=== PATIENT | female | born 1965 | race Caucasian/White ===

== ENCOUNTER 2016-06-06 21:34 | Emergency (ER) | payer OTHER ==
[~2016-06-06] VITALS: Ht 170.2 cm; Wt 82.5 kg
[~2016-06-06 21:34] MED LIST: OMEPRAZOLE20 MG PO; VITAMIN E
[2016-06-06 21:37] VITALS: BP 158/93
[2016-06-06] MEDS ORDERED: PREDNISONE10 M1 PO (22:45)
[2016-06-06] MEDS ORDERED: FLEXERIL10 MG PO (22:46)
[2016-06-06] MEDS ORDERED: VALIUM5 MG PO (23:34)
[2016-06-06] MEDS ORDERED: PREDNISONE20 MG PO (23:34)
[2016-06-06] MEDS ORDERED: NORCO 5/3251 TABLET PO (23:34)
== END 2016-06-06 23:46 | disposition home or self-care (01) ==
LOC: EXP 21:34 → EME 21:34 → EXP 23:46
DX: M54.12 Radiculopathy, cervical region (principal); M25.511 Pain in right shoulder; M79.601 Pain in right arm
CPT/HCPCS: 99281; 99283

== ENCOUNTER → 2017-04-13 | Outpatient (CLI) | payer OTHER ==
[~2017-04-13] VITALS: Ht 170.2 cm; Wt 83.0 kg
[~2017-04-13] MED LIST changes: +FLEXERIL10 MG PO; +MOTRIN800 MG PO; +MULTI VITAMIN1 EACH PO; +NORCO 5/3251 TABLET PO; +PREDNISONE10 M1 PO; +PREDNISONE20 MG PO; +TYLENOL REGULA325 MG PO; +VALIUM5 MG PO
== END | disposition home or self-care (01) ==
LOC: AMB 08:14
PROC: 0DJD8ZZ Inspection of Lower Intestinal Tract, Via Natural or Artificial Opening Endoscopic (ICD-10-PCS; principal; 2017-04-13)
DX: Z12.11 Encounter for screening for malignant neoplasm of colon (principal); K64.8 Other hemorrhoids; E78.5 Hyperlipidemia, unspecified; K21.9 Gastro-esophageal reflux disease without esophagitis
CPT/HCPCS: J2250